=== PATIENT | female | born 1985 ===

== ENCOUNTER 2024-05-28 10:18 | Outpatient (CLI) | payer OTHER, SELFPAY | END 2024-05-28 10:19 | disposition home or self-care (01) | PROVIDERS: PCP Family Medicine; Visit Provider Family Medicine | DX: I10 Essential (primary) hypertension (principal); E66.9 Obesity, unspecified; R23.2 Flushing; Z11.59 Encounter for screening for other viral diseases | CPT/HCPCS: 80053; 80061; 82043; 82570; 83001; 84443; 86803 ==

== ENCOUNTER 2025-09-09 12:45 | Outpatient (CLI) | payer BC, SELFPAY | END 2025-09-09 12:46 | disposition home or self-care (01) | PROVIDERS: PCP Family Medicine; Visit Provider Family Medicine | DX: I10 Essential (primary) hypertension (principal); Z00.00 Encounter for general adult medical examination without abnormal findings | CPT/HCPCS: 80053; 80061; 82043; 82570 ==